=== PATIENT | male | born 1930 | race African-American/Black ===

== ENCOUNTER 2018-02-09 09:36 | Outpatient (CLI) | payer MEDICARE ==
--- NOTE | 2018-02-09 15:32 | NM ---
NUCLEAR MEDICINE WHOLE BODY BONE SCAN: History: Malignant neoplasm of the prostate. Comparison: None. Technique: Patient was administered 30.9 mCi Technetium 99M MDP intravenously. Whole body delayed jina ging is performed. FINDINGS: Uptake in the mandible likely due to dental implant. Uptake in both shoulders, both knees, right wris t likely due to degenerative change. Minimal uptake involving the midthoracic spine is felt to be due to degenerative change. Minimal uptake in the anterior right lumbosacral junction likely also due to degenerative change. The re is no scintigraphic evidenced of osseous metastasis. IMPRESSION: No scintigraphic evidence of osseous metastasis. POS: [facility]
== END 2018-02-09 09:37 | disposition home or self-care (01) ==
LOC: NM 09:36
PROVIDERS: ATTEND Urology
DX: C61 Malignant neoplasm of prostate (principal)
CPT/HCPCS: 78306; A9503

== ENCOUNTER 2018-02-20 08:43 | Outpatient (CLI) | payer MEDICARE ==
--- NOTE | 2018-02-20 12:17 | CT ---
CT CHEST AND ABDOMEN AND PELVIS CONTRAST ENHANCED: HISTORY: Prostate cancer. Evaluate for metastasis. Nausea and vomiting. TECHNIQUE: Contrast enhanced CT images of the chest, abdomen, and pelvis obtained after the administration of IV and oral contrast. FINDINGS: In the right upper lobe, the right middle lobe, the anterior left lower lobe, and the anterolateral l eft upper lobe, a 3 mm nodular density seen. These may represent a possible previous inflammatory pr ocess or metastatic disease. These lesions are too small to further characterize at this time. No significant evidence of lymphadenopathy seen. The mediastinum and hilum are unremarkable. No sig nificant evidence of osseous lesions seen. CT abdomen and pelvis demonstrates the liver and spleen to be unremarkable. The pancreas and gallbla dder are unremarkable. The adrenal glands and kidneys are unremarkable. Cortical cysts are seen in the mid pole of the left kidney. No evidence of peripelvic lymphadenopathy is seen. There is enlargement of the prostate gland. Three-dimensional measurements measure 6.3 x 6.3 x 6.9 c m. No evidence of pelvic lymphadenopathy is seen. IMPRESSION: 1. Multiple small, 3 mm lung parenchymal nodular densities, too small to characterize. Follow-up CT recommended in four to six months, to confirm stability. 2. Enlargement of the prostate gland. 3. No definite evidence of osseous lesions seen. POS: [facility]
[2018-02-20] MEDS ORDERED: Iopamidol 370 76% 100 ML VIAL ONE (13:29)
== END 2018-02-20 08:44 | disposition home or self-care (01) ==
LOC: CT 08:43
PROVIDERS: ATTEND Internal Medicine Hematology & Oncology
DX: C61 Malignant neoplasm of prostate (principal); J98.4 Other disorders of lung; N40.0 Benign prostatic hyperplasia without lower urinary tract symptoms
CPT/HCPCS: 71260; 74177; 82565

== ENCOUNTER 2018-08-05 08:52 | Outpatient (CLI) | payer MEDICARE ==
--- NOTE | 2018-08-05 11:16 | CT ---
CT CHEST WITH CONTRAST CLINICAL INDICATION: Bilateral lung nodules. Prostate cancer. Follow-up evaluation. COMPARISON: 02/20/2018 FINDINGS: Aorta: Normal in caliber without evidence of an aortic dissection. Minimal vascular calcification is present at the aortic arch. Lungs: There are multiple pleural-based nodular densities again seen throughout the lungs bilaterally within the anterolateral aspect of the upper lobes bilaterally as well as along the major fissures bilaterally. Largest nodular densities are seen on the right measuring 6 and 5 mm. Some of the pleura l-based nodular densities are better delineated on today's examination but not significantly changed in size or number compared to the prior study. Again noted are linear densities within the right upper lobe likely related to scarring. Dependent at electasis is seen bilaterally. No pleural effusion is seen. Mediastinum: There is increased soft tissue density seen in the hilar regions bilaterally likely rela meliton to lymphadenopathy which was not present on the prior exam. Large area of soft tissue density in the right infrahilar region measures 2.6 cm x 1.5 cm. Mildly prominent subcarinal lymph node measu ring 2 mm in short axis dimension is present. Lungs are overall nonspecific. Calcified left hilar lymph nodes are again seen. Thyroid gland: Normal CT appearance. Osseous structures: Multilevel degenerative changes are seen. No lytic or sclerotic osseous lesions a re identified. Chest wall: No abnormality visualized. Upper abdomen: A subcentimeter too small to characterize hypodense lesion is again seen in the superi or pole right kidney. Remainder of the upper abdomen demonstrates grossly normal CT appearance for arterial phase of imaging. IMPRESSION: 1. Multiple pleural-based nodular densities bilaterally largest measuring 6 mm. These nodular densiti es are overall stable in size and number given differences in slice selection when compared to the prior exam. Follow-up CT thorax in 6 months is recommended. 2. Mild increased soft tissue density in the hilar regions bilaterally likely representing lymphadeno tasneem of uncertain etiology.
[2018-08-05] MEDS ORDERED: Iopamidol 370 76% 100 ML VIAL ONE (11:45)
== END 2018-08-05 08:53 | disposition home or self-care (01) ==
LOC: BICCT 08:52
PROVIDERS: ATTEND Internal Medicine Hematology & Oncology
DX: C61 Malignant neoplasm of prostate (principal); R91.8 Other nonspecific abnormal finding of lung field; J98.4 Other disorders of lung
CPT/HCPCS: 36415; 71260; 80053; 81001; Q9967

== ENCOUNTER 2019-02-08 09:51 | Outpatient (CLI) | payer MEDICARE ==
--- NOTE | 2019-02-08 10:43 | CT ---
CT Chest W Con History: Neoplasm of prostate Comparison: CT chest July 2018 Findings: There appears to be debris within the upper thoracic trachea and less likely a mass as this is new from the comparison examination. Remainder of the tracheobronchial tree appears be patent. There is peripheral scarring the posterior segment right upper lobe. Low-grade atelectatic changes in both lung bases. No new solid pulmonary nodule. Similar appearance of the 5 mm subpleural nodule right upper lobe axial image 28. A less dense 5-6 pu lmonary nodule is present on the right middle lobe, also unchanged. No new suspicious pulmonary nodule. 3 to 4 mm left major fissure. Partial nodules present. No pneumothorax. No significant effusion. The thoracic spine is without compression deformity. No racheal picious osteolytic or osteoblastic foci. Sternum and manubrium are intact. No acute displaced fracture. Thyroid is unremarkable. No mediastinal adenopathy. No pericardial effusion. Limited evaluation of th e upper abdomen is unremarkable. Impression: 1. Unchanged examination the chest. No interval enlargement the scattered small pulmonary nodules. No evidence for metastatic disease. 2. Debris within the upper thoracic trachea likely aspirated mucus and less likely mass as this is ne w from the comparison examination. Close attention on follow-up imaging is recommended, axial image 11.
[2019-02-08] MEDS ORDERED: Iopamidol 370 76% 100 ML VIAL ONE (11:22)
== END 2019-02-08 09:52 | disposition home or self-care (01) ==
LOC: CT 09:51
PROVIDERS: ATTEND Internal Medicine Hematology & Oncology
DX: C61 Malignant neoplasm of prostate (principal); R91.8 Other nonspecific abnormal finding of lung field
CPT/HCPCS: 71260; 82565; Q9967